=== PATIENT | male | born 1985 | race African-American/Black ===

== ENCOUNTER 2020-07-19 22:28 | Emergency (ER) | payer MEDICAID ==
[~2020-07-19] VITALS: Ht 190.5 cm; Wt 158.8 kg
[~2020-07-19 22:28] MED LIST: LISI-217
[2020-07-19 23:00] VITALS: BP_SYST 202
[2020-07-20 01:42] LABS: CALCIUM 9.1 mg/dL (8.4-11.0); CREATININE 1.32 mg/dL (0.55-1.30); POTASSIUM 3.7 mmol/L (3.5-5.1)
[2020-07-20 01:48] LABS: PROTHROMBIN TIME 10.6 SECS (9.5-12.5); TOTAL BILIRUBIN 0.6 mg/dL (0.0-1.0)
[2020-07-20 01:51] LABS: HEMATOCRIT 45.7 % (36-54); MEAN CORPUSCULAR HEMOGLOBIN 28 pg (27-31); MEAN CORPUSCULAR HGB CONC 33 % (32-36); MEAN CORPUSCULAR VOLUME 84 fL (79.0-98.0); PLATELET COUNT (AUTO) 272 K/uL (130-430); RED BLOOD CELL COUNT(AUTO) 5.46 MIL/uL (4.2-6.2); RED CELL DISTRIBUTION WIDTH 14.4 % (9.0-15.0)
[2020-07-20 01:52] LABS: BASOPHILS % (AUTO) 0.6 % (0.0-2.0); EOSINOPHILS # (AUTO) 0.1 K/uL (0.0-0.4); EOSINOPHILS % (AUTO) 1.2 % (0.0-4.0); LYMPHOCYTES # (AUTO) 1.6 K/uL (1.0-5.5); LYMPHOCYTES % (AUTO) 26.9 % (20.5-51.5); MONOCYTES # (AUTO) 0.7 K/uL (0.0-1.0); MONOCYTES % (AUTO) 11.5 % (1.7-9.3); NEUTROPHILS # (AUTO) 3.6 K/uL (1.8-7.7); NEUTROPHILS % (AUTO) 59.8 % (40.0-70.0)
[2020-07-20 01:54] LABS: C-REACTIVE PROTEIN QUANT 0.4 mg/dL (0-0.5)
[2020-07-20 02:36] LABS: ERYTHROCYTE SEDIMENTATION RATE 2 MM/HR (0-15)
[2020-07-20] MEDS ORDERED: LIDOCAINE JECT 2% PF 100 MG/5ML SYRINGE ONE (04:59)
[2020-07-20] MEDS ORDERED: LIDOCAINE 2%, 20 ML MDV INJ ONE (05:00)
[2020-07-20] MEDS ORDERED: LIDOCAINE 2%, 20 ML MDV ONE (05:02)
[2020-07-20] MEDS ORDERED: IBUP-1969 PO (07:20)
[2020-07-20 07:29] LABS: BODY FLUID SOURCE/ TYPE SYNOVIAL; SOURCE/TYPE ,BODY FLUID SYNOVIAL
[2020-07-20 07:30] LABS: APPEARANCE,SPUN,BODY FLUID BLOODY (CLEAR); BF APPEARANCE UNSPUN BLOODY (CLEAR); BODY FLUID COLOR RED (LT YELLOW)
[2020-07-20 07:31] LABS: BODY FLUID TOTAL VOLUME 20 mL; EOSINOPHIL, BODY FLUID 0 %; LYMPHOCYTES, BODY FLUID 0 %; MONOCYTES,BODY FLUID 0 %; NEUTROPHIL, BODY FLUID 0 %; RBC, BODY FLUID 9636 /uL; WBC, BODY FLUID 0 /uL
[2020-07-20 07:32] LABS: BODY FLUID CRYSTALS NO CRYSTALS SEEN (None Seen)
[2020-07-20 07:43] VITALS: BP_SYST 172
[2020-07-20 15:56] LABS: BODY FLUID GLUCOSE 83 mg/dL; BODY FLUID TOTAL PROTEIN 3.9 g/dL
== END 2020-07-20 07:40 | disposition home or self-care (01) ==
LOC: SED 22:28
DX: M71.21 Synovial cyst of popliteal space [Baker], right knee (principal); M13.861 Other specified arthritis, right knee; G62.9 Polyneuropathy, unspecified; I10 Essential (primary) hypertension
CPT/HCPCS: 20610; 36415; 73560; 73590; 73700; 76376; 80053; 82947; 83605; 84157; 85025; 85610; 85651; 86140; 87070; 89051 ×2; 89060; 93971; 99285; J2001

== ENCOUNTER 2021-01-09 12:47 | Emergency (ER) | payer MEDICAID ==
[~2021-01-09] VITALS: Ht 190.5 cm; Wt 154.2 kg
[~2021-01-09 12:47] MED LIST changes: +IBUP-1969 PO
--- NOTE | 2021-01-09 14:00 | NUR ---
Pt to bed 4 for evaluation.
[2021-01-09 14:02] VITALS: BP_SYST 161
--- NOTE | 2021-01-09 14:02 | NUR ---
Pt AAO and ambulatory reporting that he fell one week ago onto bilateral arms and developed a rash. Pt's rash with bumps has become swollen and pain continues to increase. Pt reporting discomfort of 7/10 on pain scale. Pt has a history of high blood pressure.
[2021-01-09] MEDS ORDERED: AMLO5TAB4 PO (14:04)
--- NOTE | 2021-01-09 14:30 | NUR ---
ER at bedside examining patient.
--- NOTE | 2021-01-09 15:32 | NUR ---
pt. waitting comfortably for xray results, denies any pain
--- NOTE | 2021-01-09 15:45 | NUR ---
Patient given written and verbal discharge instructions and verbalizes understanding. ER Dr. Summers discussed with patient the results and treatment provided. Patient in stable condition. ID arm band removed. Patient educated on pain management and to follow up with PMD. Pain Scale 0. Opportunity for questions provided and answered.
[2021-01-09 15:46] VITALS: BP_SYST 165
== END 2021-01-09 15:45 | disposition home or self-care (01) ==
LOC: SED 12:47
DX: S50.12XA Contusion of left forearm, initial encounter (principal); I10 Essential (primary) hypertension; Z79.899 Other long term (current) drug therapy; Y04.0XXA Assault by unarmed brawl or fight, initial encounter; Y93.89 Activity, other specified; Y92.89 Other specified places as the place of occurrence of the external cause; Y99.8 Other external cause status
CPT/HCPCS: 73090; 99283

== ENCOUNTER 2022-06-07 14:30 | Emergency (ER) | payer MEDICAID ==
[~2022-06-07] VITALS: Ht 190.5 cm; Wt 158.8 kg
[~2022-06-07 14:30] MED LIST changes: +AMLO5TAB4 PO
[2022-06-07 14:57] VITALS: BP_SYST 133
[2022-06-07] MEDS ORDERED: IBUPROFEN 800 MG TABLET PO ONE (15:30)
[2022-06-07] MEDS ORDERED: DICL20GE TP (16:28)
[2022-06-07] MEDS ORDERED: IBUP-1971 PO (16:28)
[2022-06-07 16:40] VITALS: BP_SYST 135
--- NOTE | 2022-06-07 16:43 | NUR ---
Patient given written and verbal discharge instructions and verbalizes understanding. ER MD discussed with patient the results and treatment provided. Patient in stable condition. ID arm band removed. IV catheter removed intact and dressing applied, no active bleeding. Rx of IBUPROPHEN,DICOFENAC given. Patient educated on pain management and to follow up with PMD. Pain Scale . Opportunity for questions provided and answered. Medication side effect fact sheet provided.
== END 2022-06-07 16:40 | disposition home or self-care (01) ==
LOC: SED 14:30
DX: S96.911A Strain of unspecified muscle and tendon at ankle and foot level, right foot, initial encounter (principal); M79.671 Pain in right foot; I10 Essential (primary) hypertension; X58.XXXA Exposure to other specified factors, initial encounter; Y93.89 Activity, other specified; Y92.89 Other specified places as the place of occurrence of the external cause; Y99.8 Other external cause status
CPT/HCPCS: 99283